=== PATIENT | female | born 1995 | race Caucasian/White ===

== ENCOUNTER 2019-08-14 14:08 | Outpatient (CLI) | payer BC ==
[~2019-08-14] VITALS: Ht 161.3 cm; Wt 90.9 kg
[2019-08-14 13:46] VITALS: BP 103/57
[2019-08-14 15:25] LABS: MICROSCOPIC INDICATED
== END 2019-08-14 16:36 | disposition home or self-care (01) ==
LOC: LDOP 14:08
PROVIDERS: ATTEND Obstetrics & Gynecology
DX: O26.893 Other specified pregnancy related conditions, third trimester (principal); R10.9 Unspecified abdominal pain; Z3A.32 32 weeks gestation of pregnancy
CPT/HCPCS: 59025; 81001; 87086; 99201; G0463

== ENCOUNTER 2019-09-03 19:16 | Outpatient (CLI) | payer BC ==
[~2019-09-03] VITALS: Ht 157.5 cm; Wt 93.6 kg
[2019-09-03 19:28] VITALS: BP 123/76
[2019-09-03 20:06] LABS: BASOPHILS # (AUTO) 0.03 x10^3/uL (0-0.1); BASOPHILS % (AUTO) 0 % (0-1); EOSINOPHILS % (AUTO) 0 % (1-7); LYMPHOCYTES # (AUTO) 2.92 x10^3/uL (1-3.4); LYMPHOCYTES % (AUTO) 33 % (22-44); MD NO; MEAN CORPUSCULAR HEMOGLOBIN 23.7 pg (27.0-34.8); MEAN CORPUSCULAR HGB CONC 31.6 g/dL (32.4-35.8); MEAN CORPUSCULAR VOLUME 74.9 fL (80-100); MEAN PLATELET VOLUME 9.2 fL (7.4-10.4); MONOCYTES # (AUTO) 0.59 x10^3/uL (0.2-0.8); MONOCYTES % (AUTO) 7 % (2-9); NEUTROPHILS # (AUTO) 5.22 x10^3/uL (1.8-6.8); NEUTROPHILS % (AUTO) 60 % (42-75); PLATELET COUNT 280 x10^3/uL (130-400); RED BLOOD COUNT 4.32 x10^6/uL (3.82-5.3)
[2019-09-03 20:07] LABS: MICROSCOPIC INDICATED
== END 2019-09-03 20:40 | disposition home or self-care (01) ==
LOC: LDOP 19:16
PROVIDERS: ATTEND Obstetrics & Gynecology
DX: O26.853 Spotting complicating pregnancy, third trimester (principal); O26.893 Other specified pregnancy related conditions, third trimester; Z3A.36 36 weeks gestation of pregnancy
CPT/HCPCS: 36415; 59025; 81001; 85025; 87086; 99211; G0463

== ENCOUNTER 2019-09-24 03:37 | Inpatient (IN) | payer BC ==
[~2019-09-24] VITALS: Ht 167.6 cm; Wt 95.0 kg
[2019-09-24 03:41] VITALS: BP 125/83
[2019-09-24] MEDS: LACTATED RINGERS 1,000 ML IV SCH ×3 (04:10→20:15)
[2019-09-24] MEDS ORDERED: D5%-LACTATED RINGERS 1,000 ML IV SCH (04:15)
[2019-09-24] MEDS ORDERED: OXYTOCIN 30U/ 0.9% NaCL 500ML 500 ML IV ONE (04:15)
[2019-09-24] MEDS ORDERED: TERBUTALINE 1 MG/ML, 1ML IVPush PRN (04:30)
[2019-09-24] MEDS ORDERED: TERBUTALINE 1 MG/ML, 1ML SQ PRN (04:30)
[2019-09-24] MEDS ORDERED: ONDANSETRON 2MG/ML, 2ML IVPush PRN (04:30)
[2019-09-24] MEDS ORDERED: FENTANYL PF 100 MCG/2ML IV PRN (04:30)
[2019-09-24 04:57] LABS: BASOPHILS # (AUTO) 0.05 x10^3/uL (0-0.1); BASOPHILS % (AUTO) 1 % (0-1); EOSINOPHILS # (AUTO) 0.09 x10^3/uL (0-0.4); EOSINOPHILS % (AUTO) 1 % (1-7); LYMPHOCYTES % (AUTO) 38 % (22-44); MD NO; MEAN CORPUSCULAR HEMOGLOBIN 23.8 pg (27.0-34.8); MEAN CORPUSCULAR HGB CONC 31.4 g/dL (32.4-35.8); MEAN PLATELET VOLUME 10.2 fL (7.4-10.4); MONOCYTES # (AUTO) 0.41 x10^3/uL (0.2-0.8); MONOCYTES % (AUTO) 5 % (2-9); NEUTROPHILS # (AUTO) 5.13 x10^3/uL (1.8-6.8); NEUTROPHILS % (AUTO) 56 % (42-75); PLATELET COUNT 294 x10^3/uL (130-400); RED BLOOD COUNT 4.92 x10^6/uL (3.82-5.3); RED CELL DISTRIBUTION WIDTH 20.7 % (9.6-15.2)
[2019-09-24] MEDS ORDERED: PLEASE ENTER HEIGHT AND WEIGHT MC SCH (05:00)
[2019-09-24] MEDS ORDERED: FENTANYL PF 100 MCG/2ML ONE ×2 (05:51→10:48)
[2019-09-24] MEDS ORDERED: ONDANSETRON 2MG/ML, 2ML ONE (05:51)
[2019-09-24] MEDS: FENTANYL PF 100 MCG/2ML IVPush PRN ×2 (05:55→10:59)
[2019-09-24] MEDS ORDERED: NEWBORN KIT ONE (07:07)
[2019-09-24] MEDS ORDERED: OXYTOCIN 30U/ 0.9% NaCL 500ML 500 ML ONE ×4 (07:07→12:57)
[2019-09-24] MEDS ORDERED: MISOPROSTOL 200 MCG TABLET ONE (07:07)
[2019-09-24] MEDS ORDERED: LIDOCAINE 1%, 20ML ONE (07:07)
[2019-09-24] MEDS ORDERED: SODIUM CITRATE/CITRIC ACID 30 ML UDC ONE (07:53)
[2019-09-24] MEDS ORDERED: METOCLOPRAMIDE 5 MG/ML, 2ML ONE (07:53)
[2019-09-24] MEDS ORDERED: TERBUTALINE 1 MG/ML, 1ML ONE (07:53)
[2019-09-24] MEDS ORDERED: IBUPROFEN 600 MG TABLET ONE (08:42)
[2019-09-24] MEDS: IBUPROFEN 600 MG TABLET PO PRN (08:53)
[2019-09-24] MEDS: OXYTOCIN 30U/ 0.9% NaCL 500ML 500 ML IV SCH ×3 (08:53→12:59)
[2019-09-24] MEDS ORDERED: DOCUSATE 100 MG CAPSULE PO PRN (09:00)
[2019-09-24] MEDS ORDERED: MISOPROSTOL 200 MCG TABLET PR PRN (09:00)
[2019-09-24] MEDS ORDERED: ONDANSETRON 2MG/ML, 2ML IV PRN (09:00)
[2019-09-24] MEDS ORDERED: SIMETHICONE 80 MG CHEW TAB PO PRN (09:00)
[2019-09-24] MEDS: PRENATAL VIT/IRON/FA 1 EACH TABLET PO SCH (09:00)
[2019-09-24] MEDS ORDERED: FENTANYL PF 100 MCG/2ML IV ONE (11:00)
[2019-09-24] MEDS ORDERED: METHYLERGONOVINE 0.2 MG/ML IM ONE (11:08)
[2019-09-24] MEDS ORDERED: METHYLERGONOVINE 0.2 MG/ML IM PRN (11:30)
[2019-09-24 11:53] LABS: MEAN CORPUSCULAR HEMOGLOBIN 23.5 pg (27.0-34.8); MEAN CORPUSCULAR HGB CONC 31.2 g/dL (32.4-35.8); MEAN CORPUSCULAR VOLUME 75.2 fL (80-100); MEAN PLATELET VOLUME 9.8 fL (7.4-10.4); PLATELET COUNT 266 x10^3/uL (130-400); RED BLOOD COUNT 4.28 x10^6/uL (3.82-5.3); RED CELL DISTRIBUTION WIDTH 20.8 % (9.6-15.2)
[2019-09-24 13:30] VITALS: BP 123/85
[2019-09-24 16:14] LABS: BASOPHILS # (AUTO) 0.03 x10^3/uL (0-0.1); BASOPHILS % (AUTO) 0 % (0-1); EOSINOPHILS # (AUTO) 0.21 x10^3/uL (0-0.4); EOSINOPHILS % (AUTO) 1 % (1-7); LYMPHOCYTES # (AUTO) 2.54 x10^3/uL (1-3.4); LYMPHOCYTES % (AUTO) 16 % (22-44); MD NO; MEAN CORPUSCULAR HEMOGLOBIN 23.9 pg (27.0-34.8); MEAN CORPUSCULAR HGB CONC 31.3 g/dL (32.4-35.8); MEAN CORPUSCULAR VOLUME 76.2 fL (80-100); MEAN PLATELET VOLUME 10.5 fL (7.4-10.4); MONOCYTES # (AUTO) 0.67 x10^3/uL (0.2-0.8); MONOCYTES % (AUTO) 4 % (2-9); NEUTROPHILS # (AUTO) 12.36 x10^3/uL (1.8-6.8); NEUTROPHILS % (AUTO) 78 % (42-75); PLATELET COUNT 251 x10^3/uL (130-400); RED BLOOD COUNT 3.89 x10^6/uL (3.82-5.3); RED CELL DISTRIBUTION WIDTH 21.1 % (9.6-15.2)
[2019-09-24 16:45] VITALS: BP 131/88
[2019-09-24 20:05] VITALS: BP 122/86
[2019-09-24 23:59] VITALS: BP 121/82
[2019-09-25 03:45] VITALS: BP 120/81
[2019-09-25] MEDS: LACTATED RINGERS 1,000 ML IV SCH ×2 (04:15→12:15)
[2019-09-25] MEDS: IBUPROFEN 600 MG TABLET PO PRN ×2 (06:16)
[2019-09-25] MEDS ORDERED: FLU VACC QS2019-20 36MOS UP/PF 0.5 ML IM-VACC ONE (06:30)
[2019-09-25 08:15] VITALS: BP 136/87
[2019-09-25] MEDS: PRENATAL VIT/IRON/FA 1 EACH TABLET PO SCH (09:00)
[2019-09-25] MEDS ORDERED: IBUP-1222 PO (13:32)
== END 2019-09-25 14:34 | disposition home or self-care (01) | DRG 807 ==
LOC: LDOP 03:37 → LDIP 04:05 → 2NW 13:09
PROVIDERS: ADMIT Obstetrics & Gynecology; ATTEND Obstetrics & Gynecology
PROC: 10E0XZZ Delivery of Products of Conception, External Approach (ICD-10-PCS; principal; 2019-09-24)
PROC: 0HQ9XZZ Repair Perineum Skin, External Approach (ICD-10-PCS; 2019-09-24)
DX: O99.214 Obesity complicating childbirth (principal); Z37.0 Single live birth; E66.01 Morbid (severe) obesity due to excess calories; O72.1 Other immediate postpartum hemorrhage; Z3A.38 38 weeks gestation of pregnancy; O70.0 First degree perineal laceration during delivery
CPT/HCPCS: 36415; 82803; 85025; 85027; 86592; 86850; 86900; 90686; G0378; J3010; J2210; J2590; J7120